=== PATIENT | female | born 1995 | race Caucasian/White ===

== ENCOUNTER 2016-11-08 12:52 | Emergency (ER) | payer BC, OTHER ==
[~2016-11-08] VITALS: Ht 167.6 cm; Wt 75.9 kg
[~2016-11-08 12:52] MED LIST: CLC/300 PO; VALA1TAB PO
[2016-11-08 12:58] VITALS: TEMP 36.5; Ht 167.6 cm; Wt 75.9 kg
[2016-11-08] MEDS ORDERED: ONDANSETRON INJ 2 MG/ML 2 ML VIAL IV STA (13:11)
[2016-11-08] MEDS ORDERED: SODIUM CHLORIDE 0.9% 1000ML 1,000 ML IV STA (13:11)
[2016-11-08] MEDS ORDERED: MoRPHine SULFATE 10 MG/ML CARP/VIAL IV PRN (13:15)
[2016-11-08] MEDS ORDERED: OPTIRAY 320 IV PRN (13:15)
[2016-11-08 13:45] LABS: BASO % 0.5 %; BASO ABS # 0.03 K/uL (0-0.2); COMPLETE YES; EOS % 2.5 %; HEMATOCRIT 37.4 % (37-47); LYMPH % 22.8 %; LYMPH ABS # 1.47 K/uL (1.2-3.4); MEAN CELL VOLUME 91.4 fL (80-100); MEAN CORPUSCULAR HEMOGLOBIN 31.5 pg (25-34); MEAN CORPUSCULAR HGB CONC 34.5 g/dl (32-36); MEAN PLATELET VOLUME 11.2 fL (7.4-10.4); MONO % 6.2 %; PLATELET COUNT 209 K/uL (130-400); RED BLOOD COUNT 4.09 M/uL (4.2-5.4); WHITE BLOOD COUNT 6.44 K/uL (4.8-10.8)
[2016-11-08] MEDS ORDERED: BCPILLS PO (13:58)
[2016-11-08 14:00] LABS: URINE APPEARANCE CLOUDY (CLEAR); URINE BILIRUBIN NEG (NEG); URINE COLOR YELLOW; URINE NITRITE NEG (NEG); URINE SPECIFIC GRAVITY 1.029 (1.000-1.030); UROBILINOGEN NEG (NEG)
[2016-11-08 14:01] LABS: ALT/SGPT 17 U/L (12-78); BLOOD UREA NITROGEN 18 mg/dl (7-18); BUN/CREATININE RATIO 23.8 (10-20); CALCIUM 9.1 mg/dl (8.5-10.1); CARBON DIOXIDE 24 mmol/L (21-32); CHLORIDE 107 mmol/L (98-107); CREATININE 0.74 mg/dl (0.60-1.20); GLUCOSE 88 mg/dl (70-99); POTASSIUM 3.9 mmol/L (3.5-5.1); SODIUM 139 mmol/L (136-145)
[2016-11-08 14:04] LABS: ALKALINE PHOSPHATASE 63 U/L (45-117); AST/SGOT 19 U/L (15-37)
[2016-11-08 14:09] LABS: MANUAL MICROSCOPIC REQUIRED? NO; REVIEW REQ? YES
[2016-11-08 14:22] LABS: URINE EPITHELIAL CELL AUTO 0-5 /lpf (0-5)
--- NOTE | 2016-11-08 14:34 | DIAGNOSTIC IMAGING REPORT ---
ULTRASOUND OF THE APPENDIX CLINICAL HISTORY: Right lower quadrant abdominal pain. COMPARISON STUDY: No priors. FINDINGS: Real-time, grayscale, and color flow sonography of the right lower quadrant was performed to assess for acute appendicitis. The appendix was not discretely visualized. No inflammatory changes or free fluid are seen in the right lower quadrant. No lymphadenopathy was seen. IMPRESSION: Nonvisualization of the appendix. Note that this does not exclude acute appendicitis. Electronically signed by: Wesley Leach M.D. 11/08/2016 2:32 PM Dictated Date/Time: 11/08/2016 2:32 PM
--- NOTE | 2016-11-08 16:38 | DIAGNOSTIC IMAGING REPORT ---
ABDOMEN AND PELVIS CT WITH IV AND ORAL CONTRAST CT DOSE: 353.19 mGy.cm HISTORY: Lower abdominal pain. TECHNIQUE: Multiaxial CT images of the abdomen and pelvis were performed following the use of intravenous and oral contrast. COMPARISON STUDY: None. FINDINGS: The lung bases are clear. The liver, spleen, gallbladder, pancreas, kidneys, and adrenal glands are within normal limits. No bowel wall thickening or obstruction. The pelvic organs are unremarkable. No suspicious lytic or blastic osseous lesions. Trace pelvic free fluid is likely physiologic. Normal appendix. IMPRESSION: 1. No bowel wall thickening or obstruction. 2. Normal appendix. 3. Trace pelvic free fluid. This is likely physiologic. Electronically signed by: Bharathi Early M.D. 11/08/2016 4:37 PM Dictated Date/Time: 11/08/2016 4:21 PM
[2016-11-08] MEDS ORDERED: SULF800T23 PO (16:51)
[2016-11-08] MEDS ORDERED: PHEN-876 PO (16:51)
[2016-11-08] MEDS ORDERED: CIPROFLOXACIN 500 MG TAB PO STA (16:54)
[2016-11-08] MEDS ORDERED: CIPR1TAB10 PO (16:56)
[2016-11-08 17:03] VITALS: BP 106/60; PULSE 72; O2SAT 97
--- NOTE | 2016-11-08 23:03 | EMERGENCY ROOM VISIT NOTE ---
ED Visit Note First contact with patient: 13:01 Chief Complaint: Abdominal pain. History of Present Illness: Ms. Gibson is a 21 year-old white female who ambulates into the ED complaining of periumbilical abdominal pain. Historically patient reports no significant gastrointestinal disorders abdominal surgeries. Patient reports for the last day she has had intermittent urinary burning and mild hematuria that became worse and more intense yesterday. This morning she was up at approximately 7:00 an and noted discomfort in the periumbilical area. Since that time that discomfort has been constant and it has waxed and waned in intensity. She was seen at [facility] and was referred to the ED for evaluation of a possible appendicitis. Currently patient has difficulty describing her discomfort reports exact location around the umbilicus. She rates her discomfort 7/10. The pain is nonradiating. The pain worsens with palpation diffusely around the abdomen. She has not identified any alleviating factors related to the pain. She reports approximate 30 minutes after the onset of her pain she took 600 mg of ibuprofen without relief of her discomfort. Associated with her pain she reports she's been having intermittent chills and nausea without vomiting. Additionally she currently reports that she is in the middle of her normal menstrual cycle. Patient denies sweats, skin eruptions, skin color changes, upper respiratory tract symptoms, shortness of breath, chest pain, diarrhea, constipation, rectal bleeding, black/tarry stools, urinary symptoms, vaginal discharge, back/flank pain. Review of Systems: As noted above in history of present illness. All body systems were reviewed and found to be negative as noted above. Past Medical History: Asthma. Current Medications: control. Allergies to Medications: Augmentin. Social History: Patient is currently University student; she feels safe in her home environment; she denies tobacco use; she admits to alcohol use. Physical Examination: Vital Signs: Date Time Temp Pulse Resp B/P Pulse Ox O2 Delivery O2 Flow Rate FiO2 11/08/16 17:03 72 20 106/60 97 11/08/16 16:10 76 20 106/64 97 Room Air 11/08/16 14:10 89 16 115/78 97 Room Air 11/08/16 12:58 36.5 85 16 115/76 98 Room Air GENERAL: 21-year-old female in mild to moderate distress due to pain, nontoxic- appearing, afebrile and hemodynamically stable. NEUROLOGICAL: Awake, alert and oriented to person, place and time. Answering questions appropriately and following commands. Normal gait. Good hand eye coordination. SKIN: Warm, dry and pink. No soft tissue eruptions or trauma noted. HEENT: Atraumatic and normocephalic. PERRLA. Sclera white and conjunctiva pink. Oral cavity moist and pink. Pharynx is nonerythematous or edematous. Speech normal. No lymphadenopathy. Trachea midline. No jugular venous distention. BACK: No tenderness over the bony spine. No CVA tenderness. THORAX: Lungs sounds are clear to auscultation and equal bilaterally with symmetrical chest wall. No wheezing, rales or rhonchi. HEART: Regular rate and rhythm. No gallops, rubs or murmurs are appreciated. ABDOMEN: Flat and soft a with mild diffuse tenderness throughout the abdomen with mild prominence in the mid left quadrant area. Decreased bowel sounds in all quadrants. No guarding, rigidity or organomegaly. EXTREMITIES: Moves all extremities well on command and with purpose. All distal neurovascular statuses are intact and equal bilaterally. ED Course: Patient is assessed as noted above. Laboratory Testing: Test 11/08/16 13:24 11/08/16 13:34 Range/Units Urine Color YELLOW Urine Appearance CLOUDY CLEAR Urine pH 7.0 4.5-7.5 Urine Specific [place] 1.029 1.000-1.030 Urine Protein TRACE NEG Urine Glucose (UA) NEG NEG Urine Ketones NEG NEG Urine Occult Blood 3+ NEG Urine Nitrite NEG NEG Urine Bilirubin NEG NEG Urine Urobilinogen NEG NEG Urine Leukocyte Esterase LARGE NEG Urine WBC (Auto) >30 0-5 /hpf Urine RBC (Auto) >30 0-4 /hpf Urine Hyaline Casts (Auto) 1-5 0-5 /lpf Urine Epithelial Cells (Auto) 0-5 0-5 /lpf Urine Bacteria (Auto) 1+ NEG Urine Yeast (Auto) NONE PRSENT Urine Test NEG NEG White Blood Count 6.44 4.8-10.8 K/uL Red Blood Count 4.09 4.2-5.4 M/uL Hemoglobin 12.9 12.0-16.0 g/dL Hematocrit 37.4 37-47 % Mean Corpuscular Volume 91.4 80-100 fL Mean Corpuscular Hemoglobin 31.5 25-34 pg Mean Corpuscular Hemoglobin Concent 34.5 32-36 g/dl Platelet Count 209 130-400 K/uL Mean Platelet Volume 11.2 7.4-10.4 fL Neutrophils (%) (Auto) 68.0 % Lymphocytes (%) (Auto) 22.8 % Monocytes (%) (Auto) 6.2 % Eosinophils (%) (Auto) 2.5 % Basophils (%) (Auto) 0.5 % Neutrophils # (Auto) 4.38 1.4-6.5 K/uL Lymphocytes # (Auto) 1.47 1.2-3.4 K/uL Monocytes # (Auto) 0.40 0.11-0.59 K/uL Eosinophils # (Auto) 0.16 0-0.5 K/uL Basophils # (Auto) 0.03 0-0.2 K/uL RDW Standard Deviation 40.5 36.4-46.3 fL RDW Coefficient of Variation 12.0 11.5-14.5 % Immature Granulocyte % (Auto) 0.0 % Immature Granulocyte # (Auto) 0.00 0.00-0.02 K/uL Sodium Level 139 136-145 mmol/L Potassium Level 3.9 3.5-5.1 mmol/L Chloride Level 107 98-107 mmol/L Carbon Dioxide Level 24 21-32 mmol/L Anion Gap 8.0 3-11 mmol/L Blood Urea Nitrogen 18 7-18 mg/dl Creatinine 0.74 0.60-1.20 mg/dl Est Creatinine Clear Calc Drug Dose 124.1 ml/min Estimated GFR () 133.3 Estimated GFR (Non- 115.0 BUN/Creatinine Ratio 23.8 10-20 Random Glucose 88 70-99 mg/dl Calcium Level 9.1 8.5-10.1 mg/dl Total Bilirubin 0.3 0.2-1 mg/dl Direct Bilirubin < 0.1 0-0.2 mg/dl Aspartate Amino Transf (AST/SGOT) 19 15-37 U/L Alanine Aminotransferase (ALT/SGPT) 17 12-78 U/L Alkaline Phosphatase 63 45-117 U/L Total Protein 7.9 6.4-8.2 gm/dl Albumin 3.7 3.4-5.0 gm/dl Lipase 178 73-393 U/L Urine Culture: Pending RLQ Abdominal Ultrasound: Was reviewed by myself and read by the radiologist showing that the appendix was not visible. Contrast Abdominal/Pelvic CT: Was reviewed by myself and read by the radiologist and shows normal-appearing liver, spleen, gallbladder, pancreas, kidneys and adrenal glands. No bowel wall thickening or signs of obstruction. Pelvic organs appear unremarkable. No suspicious lytic or blastic ostial lesions. Trace pelvic free fluid and normal-appearing appendix. On my review of her CT she did seem to have a moderate amount of fecal retention on the right side of the abdomen. Patient was hydrated with normal saline and she received 4 mg of morphine IV for pain and 4 mg of Zofran IV. After radiological testing were completed she received 500 mg of ciprofloxacin by mouth for urinary tract infection. Patient was reassessed multiple times during her stay in the emergency department. Patient's case was reviewed with Dr. Ybarra; we agreed on diagnostic approach, treatment, disposition and plan. Patient was educated about quentinight's findings and instructed on her treatment plan; she verbalizes understanding and agreement with this plan. Clinical Impression: Urinary tract infection. Acute abdominal pain. Constipation. Decision-Making: Initially my differential diagnosis I considered acute appendicitis, bowel obstruction, constipation, pyelonephritis, pancreatitis, hepatitis, kidney stone and other causes. Disposition: Patient discharged home in stable condition; prior to departure she was reassessed and subjectively reported that she was pain and symptom-free. Plan: Urinary tract infection Patient was prescribed ciprofloxacin 500 mg 2 times a day for total of 10 days and 100 mg of Pyridium 3 times a day for 2 days for urinary burning. Patient was encouraged stay well-hydrated with increased clear fluids. Patient was encouraged to follow-up at [facility] for recheck and culture results in 36-48 hours. Patient was encouraged return the ED for worsening symptoms, fevers, vomiting, flank pain or any new/concerning symptoms. Acute abdominal pain and constipation Patient was encouraged to alternate ibuprofen and acetaminophen as needed for pain every 3 hours. Patient was encouraged to use [id number] Colace and MiraLAX once a day for the next 7 days. Patient was encouraged to increase dietary fiber and stay well-hydrated. Patient was encouraged to follow-up at [facility] as needed. Patient was encouraged return the ED for worsening pain, bloody stools, fevers or any new/concerning symptoms.
== END 2016-11-08 17:04 | disposition home or self-care (01) ==
LOC: C.EDB 12:53 → C.EDA 17:04
DX: N39.0 Urinary tract infection, site not specified (principal); R10.33 Periumbilical pain; K59.00 Constipation, unspecified; J45.909 Unspecified asthma, uncomplicated; Z79.3 Long term (current) use of hormonal contraceptives